=== PATIENT | female | born 1970 | race Caucasian/White ===

== ENCOUNTER 2018-02-19 17:20 | Emergency (ER) | payer OTHER ==
[2018-02-19 17:42] VITALS: TEMP 97.4; O2SAT 96
--- NOTE | 2018-02-19 17:47 | ED.PDOC ---
History of Present Illness - General Chief Complaint: Neuro Symptoms/Deficits Stated Complaint: seizure Time Seen by Provider: 02/19/18 17:37 Source: patient, police, EMS Exam Limitations: clinical condition - History of Present Illness Initial Comments: patient comes in today for possible seizure activity. Patient was in the process of being arrested and going to [facility] when she suddenly began twitching and saying that she was having a seizure. She was able to walk and talk but was moving her arms and legs around erratically. 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 Patient states she does not use drugs and denies any alcohol use or history of withdrawals. Patient states she is very anxious. She does not have any shortness of breath, fever, chills, nausea or vomiting or trauma to the head prior to this incident. Patient does day she has a current rib fracture on the left Timing/Duration: 1/2 hour Severity: severe Improving Factors: nothing Worsening Factors: nothing Associated Symptoms: denies symptoms Allergies/Adverse Reactions: Allergies Pregabalin [From Lyrica] Allergy (Verified 02/19/18 17:35) Review of Systems - Review of Systems Constitutional: States: no symptoms reported. Denies: chills, fever EENTM: States: no symptoms reported. Denies: eye pain, ear pain, nose congestion, throat pain Respiratory: States: no symptoms reported. Denies: cough, short of breath, wheezing Cardiology: States: no symptoms reported. Denies: chest pain, palpitations Gastrointestinal/Abdominal: States: no symptoms reported. Denies: abdominal pain, diarrhea, nausea, vomiting Genitourinary: States: no symptoms reported Musculoskeletal: States: no symptoms reported Skin: States: no symptoms reported Neurological: States: see HPI Past Medical History (General) - Patient Medical History Hx Seizures: Yes Hx Hypertension: Yes Hx Diabetes: Yes Hx Cancer: Yes - breast Surgical History: other Family Medical History - Family History Mother Family History: Unknown Physical Exam - Physical Exam General Appearance: Agitated, Anxious, Other - patient is writhing in bed with no tonic clonic movements, able to follow commands and stop movements temporarily to do so. Eye Exam: bilateral normal Ears, Nose, Throat: hearing grossly normal, normal ENT inspection, normal pharynx Neck: non-tender, full range of motion, supple, normal inspection Respiratory: chest non-tender, lungs clear, normal breath sounds, no respiratory distress Cardiovascular/Chest: normal peripheral pulses, regular rate, rhythm, no edema, no gallop, no murmur Gastrointestinal/Abdominal: normal bowel sounds, non tender, soft Back Exam: normal inspection Neurologic: no motor/sensory deficits, oriented x 3 Progress - Progress Progress: 02/19/18 19:53 patient was released from custody and is upset about her but doing better. We will have her discharged home and she is to follow up on Wednesday with PCP - Results/Orders Results/Orders: 02/19/18 18:43 URINE DRUG SCREEN, 7 ASSAY Stat 02/19/18 18:44 URINALYSIS Stat Laboratory Results WBC 13.4 K/mm3 (4.8-10.8) H 02/19/18 17:59 RBC 4.85 M/mm3 (4.20-5.40) 02/19/18 17:59 Hgb 14.4 gm/dL (12.0-16.0) 02/19/18 17:59 Hct 42.6 % (36.0-47.0) 02/19/18 17:59 MCV 87.7 fl (81.0-99.0) 02/19/18 17:59 MCH 29.7 pg (27.0-31.0) 02/19/18 17:59 MCHC 33.8 g/dL (33.0-37.0) 02/19/18 17:59 RDW 12.7 % (11.5-14.5) 02/19/18 17:59 Plt Count 198 K/mm3 (130-400) 02/19/18 17:59 MPV 9.6 fl (7.40-10.4) 02/19/18 17:59 Absolute Neuts (auto) 8.20 K/uL (1.8-6.8) H 02/19/18 17:59 Absolute Lymphs (auto) 3.40 K/uL (1.0-3.4) 02/19/18 17:59 Absolute Monos (auto) 1.50 K/uL (0.2-0.8) H 02/19/18 17:59 Absolute Eos (auto) 0.10 K/uL (0.0-0.4) 02/19/18 17:59 Absolute Basos (auto) 0.10 K/uL (0.0-0.1) 02/19/18 17:59 Neutrophils % 61.7 % (42.0-78.0) 02/19/18 17:59 Lymphocytes % 25.6 % (20.0-50.0) 02/19/18 17:59 Monocytes % 11.6 % (2.0-9.0) H 02/19/18 17:59 Eosinophils % 0.7 % (1.0-5.0) L 02/19/18 17:59 Basophils % 0.4 % (0.0-2.0) 02/19/18 17:59 pCO2 40 mmHg (32-45) 02/19/18 19:35 pO2 82 mmHg (83-108) L 02/19/18 19:35 HCO3 23.5 mmol/L 02/19/18 19:35 ABG pH 7.390 (7.35-7.45) 02/19/18 19:35 ABG O2 Saturation 97.7 % (95.0-99.0) 02/19/18 19:35 ABG Base Excess -0.7 mmol/L 02/19/18 19:35 ABG Deoxyhemoglobin 2.3 % (0.0-5.0) 02/19/18 19:35 Oxyhemoglobin % 94.7 % (94.0-98.0) 02/19/18 19:35 Carboxyhemoglobin % 2.0 % (0.5-1.5) H 02/19/18 19:35 Methemoglobin % Sat 1.0 % (0.0-1.5) 02/19/18 19:35 Calc Total Hemoglobin 12.7 g/dL (12.0-16.0) 02/19/18 19:35 Sodium 138 mmol/L (135-145) 02/19/18 17:59 Potassium 3.5 mmol/L (3.6-5.0) L 02/19/18 17:59 Chloride 98 mmol/L (101-111) L 02/19/18 17:59 Carbon Dioxide 24 mmol/L (21-31) 02/19/18 17:59 Anion Gap 19.5 (12-18) H 02/19/18 17:59 BUN 22 mg/dL (7-18) H 02/19/18 17:59 Creatinine 1.00 mg/dL (0.6-1.3) 02/19/18 17:59 BUN/Creatinine Ratio 22.0 (10-20) H 02/19/18 17:59 Random Glucose 328 mg/dL (70-105) H 02/19/18 17:59 Serum Osmolality 291.8 mOsm/L (275-295) 02/19/18 17:59 Calcium 10.1 mg/dL (8.4-10.2) 02/19/18 17:59 Total Bilirubin 1.4 mg/dL (0.2-1.0) H 02/19/18 17:59 AST 66 IU/L (10-42) H 02/19/18 17:59 ALT 39 IU/L (10-60) 02/19/18 17:59 Alkaline Phosphatase 184 IU/L (42-121) H 02/19/18 17:59 Serum Total Protein 8.1 gm/dL (6.4-8.2) 02/19/18 17:59 Albumin 4.3 g/dl (3.2-5.5) 02/19/18 17:59 Globulin 3.8 gm/dL (2.3-3.5) H 02/19/18 17:59 Albumin/Globulin Ratio 1.1 (1.1-1.9) 02/19/18 17:59 Serum HCG, Qual Negative 02/19/18 17:59 Serum Ketones Negative 02/19/18 17:59 Departure - Departure Clinical Impression: Anxiety Uncontrolled diabetes mellitus Qualifiers: Diabetes mellitus type: type 1 Glycemic state: with hyperglycemia Qualified Code(s): E10.65 - Type 1 diabetes mellitus with hyperglycemia Disposition: Discharge to Home or Self Care Condition: Fair Departure Forms: ED Discharge - Pt. Copy, Patient Portal Self Enrollment Referrals: JAIME LERMA [Primary Care Provider] - 1-2 Weeks Additional Instructions: follow up with PCP on Wednesday. Increase fluids and take home insulin as per usual dose
[2018-02-19] MEDS ORDERED: SODIUM CHLORIDE 0.9% 1000ML 1,000 ML IVS ONE (18:44)
[2018-02-19] MEDS ORDERED: INSULIN, REG.(HUMAN) 100 U/ML VIAL SUBCU ONE (19:21)
[2018-02-19] MEDS ORDERED: ACETAMINOPHEN 500 MG TAB PO ONE (19:56)
[2018-02-19 21:43] VITALS: BP 137/78
== END 2018-02-19 21:43 | disposition home or self-care (01) ==
LOC: ER 17:20
DX: E10.65 Type 1 diabetes mellitus with hyperglycemia (principal); F41.9 Anxiety disorder, unspecified; G40.909 Epilepsy, unspecified, not intractable, without status epilepticus; I10 Essential (primary) hypertension; Z85.3 Personal history of malignant neoplasm of breast; Z88.8 Allergy status to other drugs, medicaments and biological substances
CPT/HCPCS: 36415; 36600; 80053; 82009; 82803; 82805; 84703; 85025; J2060; J7030

== ENCOUNTER 2018-03-12 12:36 | Emergency (ER) | payer OTHER ==
--- NOTE | 2018-03-12 12:57 | ED.PDOC ---
History of Present Illness - General Chief Complaint: Neuro Symptoms/Deficits Stated Complaint: seizure Time Seen by Provider: 03/12/18 12:46 Source: patient, police, EMS Exam Limitations: no limitations - History of Present Illness Initial Comments: patient comes in today for possible seizure on her arrival to the long-term. Patient has a long history of bipolar disorder and seizure disorder. Patient is being arrested stay on arrival to the long-term she started to say she thought she was going to have a seizure and then started shaking and stuttering her words. Patient was still alert and communicating with no loss of bowel or bladder and still able to ambulate. Patient arrives today under custody of the police for clearance. Patient's 2 weeks ago was seen with similar presentation. Patient had shaking and had stated that she was having a seizure on arrival of the police and noticed that she was being arrested. During that episode workup was negative and patient was discharged home from the emergency room after police decided to release her. Today patient states she was feeling in her usual health and denies any fever, chills, neck pain, nausea or vomiting. Patient states she often does get anxious and knows that some of this may be anxiety driven from being arrested. She currently is alert and oriented to person place and time but is moving in the bed with erratic movements intermittently talking clearly and then crying Timing/Duration: 1/2 hour Severity: moderate Improving Factors: movement Worsening Factors: nothing Associated Symptoms: denies symptoms Allergies/Adverse Reactions: Allergies Pregabalin [From Lyrica] Allergy (Verified 02/19/18 17:35) Review of Systems - Review of Systems Constitutional: States: no symptoms reported. Denies: chills, fever, malaise EENTM: States: no symptoms reported, blurred vision - chronic vision loss from DM I. Denies: eye pain Respiratory: States: no symptoms reported, cough, short of breath Cardiology: States: no symptoms reported, chest pain, palpitations Gastrointestinal/Abdominal: States: no symptoms reported, abdominal pain, diarrhea, nausea, vomiting Genitourinary: States: no symptoms reported Musculoskeletal: States: no symptoms reported Neurological: States: see HPI Past Medical History (General) - Patient Medical History Hx Seizures: Yes Hx Hypertension: Yes Hx Diabetes: Yes Hx Cancer: Yes - breast Family Medical History - Family History Mother Family History: Unknown Physical Exam - Physical Exam General Appearance: Anxious, Unkempt, Other Eye Exam: bilateral normal ENT Exam: hearing grossly normal, TMs normal, pharynx normal Neck: non-tender, full range of motion, supple Respiratory: chest non-tender, lungs clear, normal breath sounds, no respiratory distress Cardiovascular/Chest: normal peripheral pulses, regular rate, rhythm, no edema, no gallop, no JVD, no murmur Peripheral Pulses: radial,right: 2+, radial,left: 2+ Gastrointestinal/Abdominal: normal bowel sounds, non tender, soft Back Exam: no CVA tenderness Mental Status: alert, oriented x 3 oracle specialist Exam: normal hearing, normal speech, PERRL Motor/Sensory: no motor deficit, no sensory deficit, no pronator drift Skin Exam: normal color Progress - Progress Progress: 03/12/18 13:47 patient is calm and has no nausea or emesis. 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 She states she cannot see but easily reaches out to water offered to her with no difficulty and follows when distracted. patient has no acute symptoms but with elevated BS will give IVF and insulin and release to the police - Results/Orders Results/Orders: 03/12/18 13:45 Sodium Chloride 0.9% 1000ML [Ns 1000 ml] 1,000 ml IVS ONCE Laboratory Results WBC 8.5 K/mm3 (4.8-10.8) 03/12/18 13:08 RBC 5.13 M/mm3 (4.20-5.40) 03/12/18 13:08 Hgb 15.5 gm/dL (12.0-16.0) 03/12/18 13:08 Hct 45.7 % (36.0-47.0) 03/12/18 13:08 MCV 89.1 fl (81.0-99.0) 03/12/18 13:08 MCH 30.2 pg (27.0-31.0) 03/12/18 13:08 MCHC 33.9 g/dL (33.0-37.0) 03/12/18 13:08 RDW 13.6 % (11.5-14.5) 03/12/18 13:08 Plt Count 205 K/mm3 (130-400) 03/12/18 13:08 MPV 9.3 fl (7.40-10.4) 03/12/18 13:08 Absolute Neuts (auto) 6.00 K/uL (1.8-6.8) 03/12/18 13:08 Absolute Lymphs (auto) 1.70 K/uL (1.0-3.4) 03/12/18 13:08 Absolute Monos (auto) 0.70 K/uL (0.2-0.8) 03/12/18 13:08 Absolute Eos (auto) 0.00 K/uL (0.0-0.4) 03/12/18 13:08 Absolute Basos (auto) 0.10 K/uL (0.0-0.1) 03/12/18 13:08 Neutrophils % 70.9 % (42.0-78.0) 03/12/18 13:08 Lymphocytes % 20.2 % (20.0-50.0) 03/12/18 13:08 Monocytes % 8.0 % (2.0-9.0) 03/12/18 13:08 Eosinophils % 0.3 % (1.0-5.0) L 03/12/18 13:08 Basophils % 0.6 % (0.0-2.0) 03/12/18 13:08 Sodium 136 mmol/L (135-145) 03/12/18 13:08 Potassium 4.2 mmol/L (3.6-5.0) 03/12/18 13:08 Chloride 97 mmol/L (101-111) L 03/12/18 13:08 Carbon Dioxide 24 mmol/L (21-31) 03/12/18 13:08 Anion Gap 19.2 (12-18) H 03/12/18 13:08 BUN 18 mg/dL (7-18) 03/12/18 13:08 Creatinine 0.71 mg/dL (0.6-1.3) 03/12/18 13:08 BUN/Creatinine Ratio 25.4 (10-20) H 03/12/18 13:08 Random Glucose 426 mg/dL (70-105) H* 03/12/18 13:08 Serum Osmolality 292.3 mOsm/L (275-295) 03/12/18 13:08 Calcium 9.2 mg/dL (8.4-10.2) 03/12/18 13:08 Total Bilirubin 1.1 mg/dL (0.2-1.0) H 03/12/18 13:08 AST 52 IU/L (10-42) H 03/12/18 13:08 ALT 99 IU/L (10-60) H 03/12/18 13:08 Alkaline Phosphatase 182 IU/L (42-121) H 03/12/18 13:08 Serum Total Protein 8.1 gm/dL (6.4-8.2) 03/12/18 13:08 Albumin 4.1 g/dl (3.2-5.5) 03/12/18 13:08 Globulin 4.0 gm/dL (2.3-3.5) H 03/12/18 13:08 Albumin/Globulin Ratio 1.0 (1.1-1.9) L 03/12/18 13:08 Departure - Departure Clinical Impression: Anxiety, Malingering Disposition: [facility] Condition: Fair Departure Forms: ED Discharge - Pt. Copy, Patient Portal Self Enrollment Referrals: JAIME LERMA [Primary Care Provider] - 1-2 Weeks Additional Instructions: take home insulin. Return to ER for intractable emesis, altered LOC
[2018-03-12] MEDS ORDERED: INSULIN, REG.(HUMAN) 100 U/ML VIAL SUBCU ONE (13:40)
[2018-03-12] MEDS ORDERED: SODIUM CHLORIDE 0.9% 1000ML 1,000 ML IVS ONE (13:45)
[2018-03-12 14:43] VITALS: BP 168/115; TEMP 96.6; O2SAT 100
== END 2018-03-12 14:43 ==
LOC: ER 12:36
DX: F41.9 Anxiety disorder, unspecified (principal); G40.909 Epilepsy, unspecified, not intractable, without status epilepticus; F31.9 Bipolar disorder, unspecified; Z76.5 Malingerer [conscious simulation]; E10.9 Type 1 diabetes mellitus without complications; H54.62 Unqualified visual loss, left eye, normal vision right eye; I10 Essential (primary) hypertension; Z85.3 Personal history of malignant neoplasm of breast; Z88.8 Allergy status to other drugs, medicaments and biological substances
CPT/HCPCS: 36415; 80053; 85025; J2060; J7030

== ENCOUNTER 2018-06-22 09:53 | Emergency (ER) | payer OTHER ==
[2018-06-22] MEDS ORDERED: SODIUM CHLORIDE 0.9% 1000ML 1,000 ML IVS ONE ×2 (10:35→11:51)
--- NOTE | 2018-06-22 10:40 | ED.PDOC ---
History of Present Illness - General Chief Complaint: Diabetic Complaint Stated Complaint: Elevated BS, altered mental status Time Seen by Provider: 06/22/18 10:34 Source: patient, family Exam Limitations: no limitations - History of Present Illness Initial Comments: PT PRESENTS TO THE ED WITH COMPLAINT OF ELEVATED BLOOD GLUCOSE X 1 DAY. PT HAD A READING OF 517 ON HER HOME GLUCOMETER. PT ADMINISTERED 16UNITS OF INSULIN PER SLIDING SCALE AND STATES THAT REPEAT BLOOD GLUCOSE WAS 477. PTS URGED HER TO COME TO THE ED AFTER GLUCOSE LEVEL FAILED TO DROP SUFFICIENTLY. PT REPORTS SHE WAS IN COURT SECONDARY TO BEING CAUGHT WITH PILLS THAT SHE DID NOT HAVE A RX FOR AT THE TIME THIS WAS OCCURRING. Associated Symptoms: denies symptoms Allergies/Adverse Reactions: Allergies Pregabalin [From Lyrica] Allergy (Verified 06/22/18 10:03) Anaphylaxis Review of Systems - Review of Systems Constitutional: Denies: chills, fever EENTM: Denies: blurred vision, double vision Respiratory: States: cough. Denies: short of breath Cardiology: Denies: chest pain, palpitations Gastrointestinal/Abdominal: Denies: nausea, vomiting Genitourinary: Denies: dysuria, frequency Musculoskeletal: States: back pain, joint pain Skin: States: lesions. Denies: dryness Neurological: Denies: headache, numbness Endocrine: States: no symptoms reported Hematologic/Lymphatic: States: no symptoms reported Past Medical History (General) - Patient Medical History Hx Seizures: Yes Hx Stroke: No Hx Congestive Heart Failure: No Hx Hypertension: Yes Hx Diabetes: Yes Hx Cancer: Yes - breast Hx MRSA: No Surgical History: other - Vaccination History Hx Influenza Vaccination: No Hx Pneumococcal Vaccination: No - Social History Hx Tobacco Use: Yes Hx Alcohol Use: No Hx Substance Use: No - Female History Patient is a Female of Child Bearing Age (10 -59 yrs old): Yes - has Mirena Patient : No Family Medical History - Family History Mother Family History: Unknown Physical Exam - Physical Exam General Appearance: Alert, Anxious, No apparent distress, Well Developed, Well Groomed, Well Hydrated Eye Exam: bilateral normal Ears, Nose, Throat: normal pharynx Neck: supple, normal inspection Respiratory: lungs clear, normal breath sounds, no respiratory distress Cardiovascular/Chest: regular rate, rhythm, no murmur Gastrointestinal/Abdominal: non tender, soft, no organomegaly Back Exam: normal inspection Extremity: non-tender, normal inspection Neurologic: alert, oriented x 3 Skin Exam: normal color, warm/dry Progress - Progress Progress: 06/22/18 12:50 PTS REPEAT FS 261 AFTER FLUIDS AND SC INSULIN. PT FEELING BETTER, LABS DISCUSSED. - Results/Orders Results/Orders: Laboratory Tests 06/22/18 06/22/18 06/22/18 10:00 10:10 10:25 WBC 12.1 H RBC 5.41 H Hgb 16.1 H Hct 48.7 H MCV 90.0 MCH 29.7 MCHC 33.0 RDW 13.4 Plt Count 193 MPV 9.1 Absolute Neuts (auto) 8.40 H Absolute Lymphs (auto) 2.60 Absolute Monos (auto) 0.90 H Absolute Eos (auto) 0.10 Absolute Basos (auto) 0.10 Neutrophils % 70.0 Lymphocytes % 21.3 Monocytes % 7.6 Eosinophils % 0.6 L Basophils % 0.5 Sodium Potassium Chloride Carbon Dioxide Anion Gap BUN Creatinine BUN/Creatinine Ratio POC Glucose > 400 H* Random Glucose Cancelled Serum Osmolality Calcium Total Bilirubin AST ALT Alkaline Phosphatase Serum Total Protein Albumin Globulin Albumin/Globulin Ratio Urine Color Urine Appearance Urine pH Ur Specific [place] Urine Protein Urine Glucose (UA) Urine Ketones Urine Blood Urine Nitrite Urine Bilirubin Urine Urobilinogen Ur Leukocyte Esterase Urine RBC Urine WBC Ur Epithelial Cells Urine Bacteria Urine Yeast 06/22/18 06/22/18 06/22/18 10:25 12:06 12:10 WBC RBC Hgb Hct MCV MCH MCHC RDW Plt Count MPV Absolute Neuts (auto) Absolute Lymphs (auto) Absolute Monos (auto) Absolute Eos (auto) Absolute Basos (auto) Neutrophils % Lymphocytes % Monocytes % Eosinophils % Basophils % Sodium 131 L Potassium 4.2 Chloride 98 L Carbon Dioxide 21 Anion Gap 16.2 BUN 20 H Creatinine 0.70 BUN/Creatinine Ratio 28.6 H POC Glucose 261 H D Random Glucose 470 H* Serum Osmolality 285.9 Calcium 9.6 Total Bilirubin 0.5 AST 19 ALT 44 Alkaline Phosphatase 175 H Serum Total Protein 8.3 H Albumin 4.3 Globulin 4.0 H Albumin/Globulin Ratio 1.1 Urine Color Yellow Urine Appearance Clear Urine pH 5.0 Ur Specific [place] 1.025 Urine Protein Trace Urine Glucose (UA) 500 H Urine Ketones Trace Urine Blood Negative Urine Nitrite Negative Urine Bilirubin Negative Urine Urobilinogen 0.2 Ur Leukocyte Esterase Negative Urine RBC 0-1 Urine WBC 0 Ur Epithelial Cells 1-3 Urine Bacteria 0 Urine Yeast 1+ budding H Departure - Departure Clinical Impression: Hyperglycemia Time of Disposition: 12:52 Disposition: Discharge to Home or Self Care Condition: Good Departure Forms: ED Discharge - Pt. Copy, Patient Portal Self Enrollment Instructions: DI for Diabetes Type 2 Diet: diabetic diet Referrals: JAIME LERMA [Primary Care Provider] - 1-5 Days
[2018-06-22] MEDS ORDERED: INSULIN, REG.(HUMAN) 100 U/ML VIAL SUBCU ONE (10:55)
[2018-06-22 13:33] VITALS: BP 177/132; TEMP 96; O2SAT 100
== END 2018-06-22 13:34 | disposition home or self-care (01) ==
LOC: ER 09:53
DX: E11.65 Type 2 diabetes mellitus with hyperglycemia (principal); R56.9 Unspecified convulsions; I10 Essential (primary) hypertension; Z85.3 Personal history of malignant neoplasm of breast; Z87.891 Personal history of nicotine dependence; Z79.4 Long term (current) use of insulin; Z88.8 Allergy status to other drugs, medicaments and biological substances
CPT/HCPCS: 36416; 80053; 80307; 81001; 82948; 85025; J7030

== ENCOUNTER 2018-07-20 09:29 | Emergency (ER) | payer OTHER ==
--- NOTE | 2018-07-20 09:52 | ED.PDOC ---
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 Then went for [employer] on wheelchair since she could not see but had 3 seizure episodes while at [facility].fingerstick blood sugar was 196.Initially on ems arrival she was awake but not talking on her arrival at [facility] she was cooperative,talking ,fluent speech.Has history of seizure disorder and DM2. Timing/Duration: 4-6 hours Severity: severe Improving Factors: nothing Worsening Factors: nothing Associated Symptoms: other - see hpi Allergies/Adverse Reactions: Allergies Pregabalin [From Lyrica] Allergy (Verified 07/20/18 09:38) Anaphylaxis Home Medications: Ambulatory Orders Gabapentin 800 mg PO TID 07/20/18 Lisinopril 40 mg PO BID 07/20/18 Metoprolol Tartrate [Lopressor] 200 mg PO BID 07/20/18 Risperidone 1 mg PO BEDTIME 07/20/18 Tramadol HCl 50 mg PO BID 07/20/18 Review of Systems - Review of Systems Constitutional: States: no symptoms reported EENTM: States: see HPI Respiratory: States: no symptoms reported Cardiology: States: no symptoms reported Gastrointestinal/Abdominal: States: no symptoms reported Genitourinary: States: no symptoms reported Skin: States: no symptoms reported Neurological: States: seizure Endocrine: States: no symptoms reported All other Systems: Reviewed and Negative, No Change from Baseline Past Medical History (General) - Patient Medical History Hx Seizures: Yes Hx Stroke: No Hx Congestive Heart Failure: No Hx Hypertension: Yes Hx Diabetes: Yes Hx Cancer: No Hx MRSA: No Surgical History: other - c- section,back,shoulder - Vaccination History Hx Influenza Vaccination: No Hx Pneumococcal Vaccination: No - Social History Hx Tobacco Use: Yes Hx Alcohol Use: No Hx Substance Use: No Hx Physical Abuse: No Hx Emotional Abuse: No - Activities of Daily Living Patient Lives Alone: No Grooming Ability: Independent Eating (Feeding) Ability: Independent Toileting Ability: Independent - Female History Patient is a Female of Child Bearing Age (10 -59 yrs old): No Patient : No Family Medical History - Family History Mother Family History: Unknown Hx Family Diabetes: Yes - multiple family members Physical Exam - Physical Exam General Appearance: Alert, Comfortable, No apparent distress Eye Exam: bilateral other - totally blind bothe eyes-unable to see lights Ears, Nose, Throat: hearing grossly normal, normal ENT inspection, normal pharynx Neck: non-tender, supple, normal inspection Respiratory: chest non-tender, lungs clear, normal breath sounds, no respiratory distress Cardiovascular/Chest: normal peripheral pulses, regular rate, rhythm, no murmur Peripheral Pulses: radial,right: 2+, radial,left: 2+ Gastrointestinal/Abdominal: normal bowel sounds, non tender, soft, no organomegaly Extremity: no pedal edema, no calf tenderness Neurologic: alert, oriented x 3 Skin Exam: normal color, warm/dry Lymphatic: no adenopathy Progress - Progress Progress: 07/20/18 10:25 Vital Signs - 24 hr 07/20/18 09:29 Temperature 97.6 F Pulse Rate [ 117 H Right Radial] Respiratory 20 Rate Blood Pressure 164/136 [Right Arm] O2 Sat by Pulse 98 Oximetry - Results/Orders Results/Orders: 07/20/18 09:56 URINALYSIS Stat 07/20/18 10:00 EKG STAT 07/20/18 10:25 URINE DRUG SCREEN, 7 ASSAY Stat Laboratory Results - last 24 hr 07/20/18 10:18 WBC 10.9 H RBC 5.11 Hgb 15.3 Hct 45.4 MCV 88.7 MCH 30.0 MCHC 33.8 RDW 13.3 Plt Count 190 MPV 8.7 Absolute Neuts (auto) 7.50 H Absolute Lymphs (auto) 2.30 Absolute Monos (auto) 0.90 H Absolute Eos (auto) 0.10 Absolute Basos (auto) 0.10 Neutrophils % 68.9 Lymphocytes % 21.3 Monocytes % 8.1 Eosinophils % 1.0 Basophils % 0.7 PT < 8.9 L INR < 1.00 PTT (SP) 24.5 Sodium 137 Potassium 4.3 Chloride 104 Carbon Dioxide 22 Anion Gap 15.3 BUN 21 H Creatinine 0.64 BUN/Creatinine Ratio 32.8 H Random Glucose 202 H Serum Osmolality 282.5 Calcium 9.1 Magnesium 2.3 Total Bilirubin 0.4 Direct Bilirubin < 0.1 Indirect Bilirubin 0.3 AST 18 ALT 21 Alkaline Phosphatase 142 H Creatine Kinase 23 L CK-MB (CK-2) 1.1 CK-MB (CK-2) % Not Reportable Troponin I < 0.02 Serum Total Protein 7.5 Albumin 3.5 Valproic Acid < 0.1 L Discuss all test results with patient and - EKG/XRAY/CT EKG: Sinus, Tachy, no ST T wave changes Comments: HR-121 Xray Comments: carotid ultrasound-no hemodynamically significant stenosis CT Ordered: Yes - ? ill defined hypoattenuation left cerebellum or artifact Departure - Departure Clinical Impression: Diabetes 1.5, managed as type 1, Seizure disorder Vision, loss, sudden Qualifiers: Laterality: right Qualified Code(s): H53.131 - Sudden visual loss, right eye Time of Disposition: 13:19 Disposition: Transfer to Hospital Condition: Fair Departure Forms: Patient Portal Self Enrollment Referrals: JAIME LERMA [Primary Care Provider] - 1-2 Weeks Home Medications: Ambulatory Orders Gabapentin 800 mg PO TID 07/20/18 Lisinopril 40 mg PO BID 07/20/18 Metoprolol Tartrate [Lopressor] 200 mg PO BID 07/20/18 Risperidone 1 mg PO BEDTIME 07/20/18 Tramadol HCl 50 mg PO BID 07/20/18 Transfer to Outside Facility - Transfer Information Accepting Provider:: Dr. Gemma Carranza Accepting Facility: [facility] Reason for Transfer: required specialist not available - Beef Killer/Neurologist
--- NOTE | 2018-07-20 10:49 | CT ---
EXAM DESCRIPTION: Head CLINICAL HISTORY: 48 years Female, sudden onset of blindness right eye COMPARISON: None. TECHNIQUE: Axial images are obtained from the skull base to the vertex without intravenous contrast with images viewed on bone and brain windows. Coronal and sagittal reformations were provided. This exam was performed according to our departmental dose-optimization program, which includes automated exposure control, adjustment of the mA and/or kV according to patient size and/or use of iterative reconstruction technique. FINDINGS: Brain Parenchyma, ventricles, meninges, and extra-axial spaces: Ventricles and sulci are normal. There is apparent ill-defined hypoattenuation centered in the left cerebellum. No acute intracranial hemorrhage. No abnormal extra-axial fluid collections are present. No mass effect or herniation present. Vascular Structures: No hyperdense arteries or veins. Atherosclerosis is within the carotid siphons and vertebral arteries. Calvarium, paranasal sinuses, mastoids, and orbits: Calvarium is intact. Mild mucosal thickening in the left sphenoid and bilateral ethmoid sinuses. Remaining paranasal sinuses and mastoid vessels are clear. Orbits are unremarkable. IMPRESSION: 1. Ill-defined hypoattenuation centered in the left cerebellum may represent artifact although acute ischemic infarction cannot be excluded. CT is relatively insensitive when compared to MRI for evaluating for acute infarction. If there remains clinical concern, MRI of the brain can be obtained to further evaluate for ischemia. 2. Intracranial atherosclerosis. Electronically signed by: Lalo Neri MD 07/20/2018 10:47 AM CDT
--- NOTE | 2018-07-20 11:26 | US ---
EXAM DESCRIPTION: Carotid Duplex CLINICAL HISTORY: sudden onset of blindness right eye COMPARISON: None Available. TECHNIQUE: Carotid Doppler ultrasound FINDINGS: Right Submitted images show moderate plaque in the CCA and at the right carotid bifurcation. The following flow velocities were obtained: Common carotid artery peak systolic flow velocity measures 85 centimeters per second. Internal carotid artery peak systolic flow velocity measures 66-95 centimeters per second. External carotid artery peak systolic flow velocity measures 110 centimeters per second. Flow in the right vertebral artery is antegrade. The right internal carotid to common carotid peak systolic flow velocity ratio equals 1.1 which is normal. Left Submitted images show extensive calcified plaque at the left carotid bifurcation. Axial image shows 19% area stenosis of the left carotid bulb with 25% area stenosis of the proximal left ICA. The following flow velocities were obtained: Common carotid artery peak systolic flow velocity measures 112 centimeters per second. Internal carotid artery peak systolic flow velocity measures 61-68 centimeters per second. External carotid artery peak systolic flow velocity measures 103 centimeters per second. Flow in the left vertebral artery is antegrade. The left internal carotid to common carotid peak systolic flow velocity ratio of 0.6 is normal. IMPRESSION: No hemodynamically significant stenosis. Electronically signed by: Michael Thompson MD 07/20/2018 11:24 AM CDT
[2018-07-20 14:08] VITALS: BP 176/112; TEMP 97.9; O2SAT 94
== END 2018-07-20 14:02 | disposition short-term general hospital (02) ==
LOC: ER 09:29
DX: G40.909 Epilepsy, unspecified, not intractable, without status epilepticus (principal); H53.131 Sudden visual loss, right eye; E10.9 Type 1 diabetes mellitus without complications; R00.0 Tachycardia, unspecified; H54.3 Unqualified visual loss, both eyes; I10 Essential (primary) hypertension; Z87.891 Personal history of nicotine dependence; Z79.899 Other long term (current) drug therapy; Z88.8 Allergy status to other drugs, medicaments and biological substances